=== PATIENT | male | born 1965 | race African-American/Black ===

== ENCOUNTER 2016-04-14 00:25 | Emergency (ER) | payer SELFPAY | END 2016-04-14 01:37 | disposition home or self-care (01) | LOC: TRA 00:25 | DX: S00.03XA Contusion of scalp, initial encounter (principal); W10.9XXA Fall (on) (from) unspecified stairs and steps, initial encounter; Y93.01 Activity, walking, marching and hiking; F10.129 Alcohol abuse with intoxication, unspecified | CPT/HCPCS: 70450; 72125; 99281; 99285 ==